=== PATIENT | female | born 1970 | race Caucasian/White ===

== ENCOUNTER 2021-03-14 08:37 | Outpatient (CLI) | payer BC | END 2021-03-14 08:38 | disposition home or self-care (01) | LOC: CSHWCC 08:37 | PROVIDERS: ATTEND Nurse Practitioner Family | DX: T81.89XD Other complications of procedures, not elsewhere classified, subsequent encounter (principal); S31.609D Unspecified open wound of abdominal wall, unspecified quadrant with penetration into peritoneal cavity, subsequent encounter; K94.09 Other complications of colostomy; K57.40 Diverticulitis of both small and large intestine with perforation and abscess without bleeding; R60.1 Generalized edema; F32.9 Major depressive disorder, single episode, unspecified; G89.11 Acute pain due to trauma; Z85.118 Personal history of other malignant neoplasm of bronchus and lung | CPT/HCPCS: 97605; 99203; G0463 ==

== ENCOUNTER 2021-03-18 09:04 | Outpatient (CLI) | payer BC | END 2021-03-18 09:05 | disposition home or self-care (01) | LOC: CSHWCC 09:04 | PROVIDERS: ATTEND Nurse Practitioner Family | DX: T81.89XD Other complications of procedures, not elsewhere classified, subsequent encounter (principal); S31.609D Unspecified open wound of abdominal wall, unspecified quadrant with penetration into peritoneal cavity, subsequent encounter; K94.09 Other complications of colostomy; R60.1 Generalized edema; K57.40 Diverticulitis of both small and large intestine with perforation and abscess without bleeding; F32.9 Major depressive disorder, single episode, unspecified; G89.11 Acute pain due to trauma; Z85.118 Personal history of other malignant neoplasm of bronchus and lung | CPT/HCPCS: 97605 ==

== ENCOUNTER 2021-03-21 10:30 | Outpatient (CLI) | payer BC | END 2021-03-21 10:31 | disposition home or self-care (01) | LOC: CSHWCC 10:30 | PROVIDERS: ATTEND Nurse Practitioner Family | DX: T81.89XA Other complications of procedures, not elsewhere classified, initial encounter (principal); F32.9 Major depressive disorder, single episode, unspecified; G89.11 Acute pain due to trauma; K57.40 Diverticulitis of both small and large intestine with perforation and abscess without bleeding; K94.09 Other complications of colostomy; R60.1 Generalized edema; S31.60 Unspecified open wound of abdominal wall with penetration into peritoneal cavity; Z85.118 Personal history of other malignant neoplasm of bronchus and lung | CPT/HCPCS: 97605; 99213; G0463 ==

== ENCOUNTER 2021-03-24 08:57 | Outpatient (CLI) | payer BC | END 2021-03-24 08:58 | disposition home or self-care (01) | LOC: CSHWCC 08:57 | PROVIDERS: ATTEND Nurse Practitioner Family | DX: T81.89XA Other complications of procedures, not elsewhere classified, initial encounter (principal); F32.9 Major depressive disorder, single episode, unspecified; G89.11 Acute pain due to trauma; K57.40 Diverticulitis of both small and large intestine with perforation and abscess without bleeding; K94.09 Other complications of colostomy; R60.1 Generalized edema; S31.60 Unspecified open wound of abdominal wall with penetration into peritoneal cavity; Z85.118 Personal history of other malignant neoplasm of bronchus and lung; Z93.3 Colostomy status | CPT/HCPCS: 97605 ==

== ENCOUNTER 2021-03-27 08:32 | Outpatient (CLI) | payer BC | END 2021-03-27 08:33 | disposition home or self-care (01) | LOC: CSHWCC 08:32 | PROVIDERS: ATTEND Nurse Practitioner Family | DX: T81.89XD Other complications of procedures, not elsewhere classified, subsequent encounter (principal); S31.609D Unspecified open wound of abdominal wall, unspecified quadrant with penetration into peritoneal cavity, subsequent encounter; K94.09 Other complications of colostomy; K57.40 Diverticulitis of both small and large intestine with perforation and abscess without bleeding; F32.9 Major depressive disorder, single episode, unspecified; G89.11 Acute pain due to trauma; R60.0 Localized edema; Z85.118 Personal history of other malignant neoplasm of bronchus and lung; Z93.3 Colostomy status ==

== ENCOUNTER 2021-03-31 09:51 | Outpatient (CLI) | payer BC | END 2021-03-31 09:52 | disposition home or self-care (01) | LOC: CSHWCC 09:51 | PROVIDERS: ATTEND Nurse Practitioner Family | DX: T81.89XD Other complications of procedures, not elsewhere classified, subsequent encounter (principal); S31.609D Unspecified open wound of abdominal wall, unspecified quadrant with penetration into peritoneal cavity, subsequent encounter; K94.09 Other complications of colostomy; R60.1 Generalized edema; K57.40 Diverticulitis of both small and large intestine with perforation and abscess without bleeding; F32.9 Major depressive disorder, single episode, unspecified; G89.11 Acute pain due to trauma; Z85.118 Personal history of other malignant neoplasm of bronchus and lung; Z93.3 Colostomy status | CPT/HCPCS: 97605 ==